=== PATIENT | male | born 1975 | race Caucasian/White ===

== ENCOUNTER 2019-11-05 21:40 | Inpatient (IN) ==
[2019-11-05 22:31] LABS: Basophils % 0.5 %; Eosinophils # 0.1 K/mcL (0.0-0.6); Eosinophils % 1.7 %; Hematocrit 46.4 % (37.5-50.1); Immature Granulocytes % 0.3 % (0-4); Lymphocytes # 1.9 K/mcL (0.6-4.6); Lymphocytes % 25.6 %; Mean Corpuscular HGB Conc 32.3 g/dL (31.6-35.5); Mean Corpuscular Volume 86.6 fL (83.0-100.0); Mean Platelet Volume 9.7 fL (9.4-12.4); Monocytes # 0.7 K/mcL (0.0-1.3); Monocytes % 9.9 %; Neutrophils # 4.7 K/mcL (1.6-8.9); Platelet Count 350 K/mcL (140-400); Red Blood Count 5.36 M/mcL (4.19-5.50); Red Cell Distribution Width 12.8 % (11.5-14.5); White Blood Count 7.5 K/mcL (4.3-11.1)
[2019-11-05] MEDS ORDERED: Nicotine 14 MG PATCH.TD24 TD STA (22:39)
[2019-11-05 22:44] LABS: Bilirubin,Urine Small (Negative); Blood,Urine Negative (Negative); Clarity,Urine Clear (Clear); Color,Urine Yellow (Yellow); Glucose,Urine (UA) Normal (Normal); Ketones,Urine Negative (Negative); Leukocyte Esterase,Urine Negative (Negative); Nitrite,Urine Negative (Negative); Protein,Urine Trace mg/dL (Neg-Trace); Specific Gravity,Urine 1.029 (1.010-1.025); Urobilinogen,Urine Normal (Normal)
[2019-11-05 22:52] LABS: BUN/Creatinine Ratio 28 (6-26); Blood Urea Nitrogen 22 mg/dL (6-20); Calcium 9.8 mg/dL (8.6-10.3); Carbon Dioxide 28 mEq/L (23-29); Chloride 103 mEq/L (98-107); Ethanol < 10 mg/dL (Less than 10); Glucose 130 mg/dL (70-105); Osmolality,Calculated 283 (280-300); Potassium 3.9 mEq/L (3.5-5.1); Sodium 134 mEq/L (136-145); eGFR For African Americans > 60 (> 60); eGFR For Non-African Americans > 60 (> 60)
[2019-11-05 23:10] LABS: Amphetamine Screen,Urine Positive ng/mL (Cutoff=1000); Barbiturate Screen,Urine Negative ng/mL (Cutoff=200); Benzodiazepines Screen,Urine Negative ng/mL (Cutoff=200); Cannabinoid Screen,Urine Positive ng/mL (Cutoff = 50); Cocaine Screen,Urine Negative ng/mL (Cutoff= 300); Opiate Screen,Urine Negative ng/mL (Cutoff=300); Phencyclidine Screen,Urine Negative ng/mL (Cutoff=25)
[2019-11-06] MEDS ORDERED: *HR* LORazepam 2 MG/ML VIAL IM PRN (00:42)
[2019-11-06] MEDS ORDERED: MOM Conc 10 ML UD.LIQ PO PRN (00:42)
[2019-11-06] MEDS ORDERED: Haloperidol Lactate 5 MG/ML VIAL IM PRN (00:42)
[2019-11-06] MEDS ORDERED: *HR* LORazepam 1 MG TABLET PO PRN (00:42)
[2019-11-06] MEDS ORDERED: Mag Hydrox/Al Hydrox/Simeth 30 ML UDC PO PRN (00:42)
[2019-11-06] MEDS ORDERED: haloperidoL 5 MG TABLET PO PRN (00:42)
[2019-11-06] MEDS: hydrOXYzine pamoate 25 MG CAPSULE PO PRN ×3 (01:48→22:22)
[2019-11-06] MEDS: traZODone 50 MG TABLET PO PRN ×2 (01:48→22:22)
[2019-11-06] MEDS: Multivit/Ca/Min/Fe/FA 1 TAB TABLET PO SCH (13:19)
[2019-11-06] MEDS: Acetaminophen 325 MG TABLET PO PRN (22:22)
[2019-11-07] MEDS: Multivit/Ca/Min/Fe/FA 1 TAB TABLET PO SCH (08:42)
[2019-11-07] MEDS: Acetaminophen 325 MG TABLET PO PRN (14:23)
[2019-11-07] MEDS: Nicotine 21 MG PATCH.TD24 TD SCH (14:24)
[2019-11-07] MEDS: traZODone 50 MG TABLET PO PRN (20:51)
[2019-11-07] MEDS: hydrOXYzine pamoate 25 MG CAPSULE PO PRN (20:51)
[2019-11-08 09:02] VITALS: BP 117/81
[2019-11-08] MEDS: Nicotine 21 MG PATCH.TD24 TD SCH (09:54)
[2019-11-08] MEDS: Multivit/Ca/Min/Fe/FA 1 TAB TABLET PO SCH (09:54)
== END 2019-11-08 12:45 | disposition home or self-care (01) | DRG 885 ==
LOC: 1ANU 21:40 → EMEROOARM 21:40 → 1ANU 11-06 01:19
PROVIDERS: ADMIT Psychiatry & Neurology Psychiatry; ATTEND Psychiatry & Neurology Psychiatry